=== PATIENT | male | born 2000 | race Caucasian/White ===

== ENCOUNTER 2023-02-06 08:41 | Emergency (ER) | payer OTHER, MEDICAID ==
[~2023-02-06] VITALS: Ht 172.7 cm; Wt 65.7 kg
[2023-02-06 08:45] VITALS: BP 133/89
[2023-02-06 09:00] VITALS: BP 134/72
[2023-02-06 09:30] VITALS: BP 120/71
[2023-02-06 10:00] VITALS: BP 113/71
[2023-02-06 10:30] VITALS: BP 120/73
[2023-02-06 10:45] VITALS: BP 120/73
== END 2023-02-06 10:52 | disposition home or self-care (01) | DRG 605 ==
LOC: ED 08:41
DX: S50.12XA Contusion of left forearm, initial encounter (principal); W22.09XA Striking against other stationary object, initial encounter; Y92.89 Other specified places as the place of occurrence of the external cause; Y99.0 Civilian activity done for income or pay

== ENCOUNTER 2023-04-18 09:14 | Emergency (ER) | payer MEDICAID ==
[~2023-04-18] VITALS: Ht 172.7 cm; Wt 67.0 kg
[2023-04-18 09:21] VITALS: BP 136/98
[2023-04-18 09:30] VITALS: BP 144/88
[2023-04-18 09:45] VITALS: BP 119/77
[2023-04-18 10:00] VITALS: BP 122/79
[2023-04-18 10:15] VITALS: BP 120/77
[2023-04-18 10:19] VITALS: BP 120/77
== END 2023-04-18 10:25 | disposition home or self-care (01) ==
LOC: ED 09:14
DX: J06.9 Acute upper respiratory infection, unspecified (principal); F17.290 Nicotine dependence, other tobacco product, uncomplicated; Z20.822 Contact with and (suspected) exposure to COVID-19

== ENCOUNTER 2023-04-24 14:44 | Emergency (ER) | payer MEDICAID ==
[2023-04-24] VITALS (8 sets, daily range): BP systolic 114–154; BP diastolic 61–99
[~2023-04-24] VITALS: Ht 165.1 cm; Wt 70.6 kg
[2023-04-24 15:37] LABS: BASO% 0.5 % (0-3); EOS% 1.1 % (0-8); HEMATOCRIT 45.8 % (39.0-50.0); HEMOGLOBIN 16.1 g/dl (14.0-18.0); IMMATURE GRANULOCYTES 0.7 % (0.0-5.0); LYMPH% 36.6 % (15-41); MEAN CELL VOLUME 85.9 fL CALC (80.0-100.0); MEAN CORPUSCULAR HGB 30.2 pG CALC (26.0-32.0); MEAN CORPUSCULAR HGB CONC 35.2 g/dL CAL (32.0-36.0); NEUT# 4.34 thou/uL (1.82-7.42); NEUT% 52.1 % (42-76); RED BLOOD COUNT 5.33 mill/uL (4.70-6.10)
[2023-04-24 15:47] LABS: ALKALINE PHOSPHATASE 59 u/l (38-126); ANION GAP 14 (6-22 (CALC)); BILIRUBIN, TOTAL 0.5 mg/dL (0.2-1.3); BUN 16 mg/dL (9-20); BUN/CREATININE RATIO 15 (12-20 (CALC)); CARBON DIOXIDE 27 mmol/l (22-30); CHLORIDE 103 mmol/l (95-108); CREATININE 1.1 mg/dL (0.7-1.3); GFR FOR AFR.AMER. > 60 ML/MIN (>=60 (CALC)); GFR OTHER RACES > 60 ML/MIN (>=60 (CALC)); POTASSIUM 3.5 mmol/l (3.5-5.1); SGOT/AST 31 u/l (17-59); SODIUM 141 mmol/l (137-146); TOTAL PROTEIN 8.3 g/dL (6.3-8.2)
[2023-04-24 17:19] LABS: URINE BILIRUBIN - DIPSTICK Negative (NEGATIVE); URINE BLOOD DIPSTICK Negative (NEGATIVE); URINE GLUCOSE - DIPSTICK Negative (NEGATIVE); URINE KETONE Negative (NEGATIVE); URINE LEUK ESTERASE Negative (NEGATIVE); URINE NITRITE - DIPSTICK Negative (Negative); URINE PROTEIN - DIPSTICK Negative (NEG-TRACE); URINE SPECIFIC GRAVITY 1.025; URINE UROBILINOGEN - DIPSTICK 0.2 E.U./dL (0.2)
[2023-04-24 17:23] LABS: URINE COLOR Yellow
[2023-04-24] MEDS ORDERED: TAM75CAP PO (17:29)
== END 2023-04-24 18:00 | disposition home or self-care (01) ==
LOC: ED 14:44
PROVIDERS: Family Medicine; Nurse Practitioner
DX: J10.1 Influenza due to other identified influenza virus with other respiratory manifestations (principal); F17.200 Nicotine dependence, unspecified, uncomplicated; Z20.822 Contact with and (suspected) exposure to COVID-19

== ENCOUNTER 2024-09-10 13:25 | Emergency (ER) | payer OTHER ==
[2024-09-10] VITALS (13 sets, daily range): BP systolic 105–142; BP diastolic 63–90
[~2024-09-10] VITALS: Ht 165.1 cm; Wt 72.0 kg
[~2024-09-10 13:25] MED LIST: TAM75CAP PO
[2024-09-10] MEDS ORDERED: NAPROXEN 250 MG/TAB PO ONE (14:20)
[2024-09-10] MEDS ORDERED: METHOCARBAMOL500 MG PO (15:47)
[2024-09-10] MEDS ORDERED: NAPROXEN500 MG PO (15:47)
== END 2024-09-10 16:31 | disposition home or self-care (01) ==
LOC: ED 13:25
DX: S09.90XA Unspecified injury of head, initial encounter (principal); F17.200 Nicotine dependence, unspecified, uncomplicated; W31.89XA Contact with other specified machinery, initial encounter; Y99.0 Civilian activity done for income or pay